=== PATIENT | female | born 1950 | race Caucasian/White ===

== ENCOUNTER → 2016-12-12 | Outpatient (CLI) | payer MEDICARE, MEDICAID ==
[~2016-12-12] MED LIST: BROVANA15 MCG/2 M INH; CARDIZEM CD240 MG PO; CARDIZEM SR120 MG PO; CELEBREX200 MG PO; COMBIVENT RESPIM4 GM INH; COZAAR100 MG PO; CRESTOR10 MG PO; DUONEB 3.0-0.5 M3 ML INH; DUONEB 3.0-0.5 M3 ML PO; EFFEXOR XR150 MG PO; FISH OIL1 GM PO; FISH OIL300 MG PO; I-VITE TABLET1 EACH PO; JANUVIA25 MG PO; LASIX20 MG PO; LEVEMIR FL100 UNIT/1 SUBCUT; LEVEMIR100 UNIT/1 SUBCUT; LEXAPRO5 MG PO; LIPITOR80 MG PO; LOVENOX40 MG/0.4 SUBCUT; MEDROL4 MG PO; MILK OF MAGNESI30 ML PO; NOVOLOG FL100 UNIT/1 SUBCUT; NOVOLOG100 UNIT/2 SUBCUT; OCUVITE LUTEIN1 EACH PO; PRINIVIL10 MG PO; PULMICORT0.5 MG/2 M INH; SALINE FLUSH10 ML IV; SULINDAC150 MG PO; SYMBICORT 160-4.6 GM INH; TOPROL XL50 MG PO; TRADJENTA5 MG PO; VENLAFAXINE HC150 MG PO; VENLAFAXINE HCL25 MG PO; VITAMIN D250000 UNIT PO; VITAMIN D32000 UNI1 PO; VITAMIN E100 UNIT PO; VITAMIN E400 UNI2 PO; WELLBUTRIN XL150 MG PO; XANAX0.5 M1 PO; XANAX0.5 MG PO
== END | disposition short-term general hospital (02) ==
LOC: CLNEPH 10:53
DX: I12.9 Hypertensive chronic kidney disease with stage 1 through stage 4 chronic kidney disease, or unspecified chronic kidney disease (principal); E11.22 Type 2 diabetes mellitus with diabetic chronic kidney disease; E11.21 Type 2 diabetes mellitus with diabetic nephropathy; N18.4 Chronic kidney disease, stage 4 (severe); I27.2 Other secondary pulmonary hypertension; I50.9 Heart failure, unspecified; E66.01 Morbid (severe) obesity due to excess calories; J44.9 Chronic obstructive pulmonary disease, unspecified; D63.1 Anemia in chronic kidney disease; N25.81 Secondary hyperparathyroidism of renal origin; E78.5 Hyperlipidemia, unspecified; M19.90 Unspecified osteoarthritis, unspecified site; F32.9 Major depressive disorder, single episode, unspecified
CPT/HCPCS: J0885

== ENCOUNTER → 2016-12-26 | Outpatient (CLI) | payer MEDICARE, MEDICAID | END | disposition short-term general hospital (02) | LOC: CLVASC 05:09 | DX: E11.22 Type 2 diabetes mellitus with diabetic chronic kidney disease (principal); N18.4 Chronic kidney disease, stage 4 (severe) ==

== ENCOUNTER → 2017-02-06 | Outpatient (CLI) | payer MEDICARE, MEDICAID | END | disposition short-term general hospital (02) | LOC: CLNEPH 09:57 | DX: I12.9 Hypertensive chronic kidney disease with stage 1 through stage 4 chronic kidney disease, or unspecified chronic kidney disease (principal); E11.22 Type 2 diabetes mellitus with diabetic chronic kidney disease; E11.21 Type 2 diabetes mellitus with diabetic nephropathy; N18.4 Chronic kidney disease, stage 4 (severe); D63.1 Anemia in chronic kidney disease; D50.9 Iron deficiency anemia, unspecified; I27.2 Other secondary pulmonary hypertension ==

== ENCOUNTER → 2017-02-11 | Outpatient (CLI) | payer MEDICARE, MEDICAID | END | disposition short-term general hospital (02) | LOC: CLPULM 10:24 → EDSTATUS 10:27 → CLPULM 11:03 | DX: J44.9 Chronic obstructive pulmonary disease, unspecified (principal); J98.4 Other disorders of lung; J90 Pleural effusion, not elsewhere classified; I51.89 Other ill-defined heart diseases; E66.9 Obesity, unspecified; R09.02 Hypoxemia; I10 Essential (primary) hypertension; E11.9 Type 2 diabetes mellitus without complications; N18.9 Chronic kidney disease, unspecified; D63.1 Anemia in chronic kidney disease ==